=== PATIENT | female | born 1975 | race African-American/Black ===

== ENCOUNTER 2019-06-11 07:59 | Emergency (ER) | payer SELFPAY ==
[~2019-06-11] VITALS: Ht 175.3 cm; Wt 98.9 kg
[~2019-06-11 07:59] MED LIST: ALPRAZOLAM0.25 MG ORAL; CIPROFLOXACIN500 M2 ORAL; NKM
[2019-06-11] MEDS ORDERED: Meclizine 25mg tab ORAL ONE (08:30)
--- NOTE | 2019-06-11 08:30 | NUR ---
ED Nurse Note: Pt walked into ED w/ c/o DOUGHERTY and dizziness for 5 days. Pt denies blurry vision. DOUGHERTY pain 7/10 aching, constant. Pt denies vomiting, but has nausea. Pt alert and orientedx4, ambulatory. Pt is set up on monitor. Pt states she has pain while urinating. Dr Clark notified.
[2019-06-11 08:35] VITALS: BP 135/77
--- NOTE | 2019-06-11 08:56 | Emergency Room Report ---
History of Present Illness General Chief Complaint: Dizziness Source: Patient Present Illness HPI 43-year-old female presents ED for evaluation. Walked in complaining of headache and dizziness for the last 3 days. Describes room spinning sensation. Worse with sudden head movements. Pain is dull, 3 out of 10, nonradiating. Denies photophobia or blurry vision. Denies nausea or vomiting. States that she was seen here previously for this and was noted to have vertigo. States that the medication she was prescribed helped. No other aggravating relieving factors. Denies any other associated symptoms Allergies: Coded Allergies: No Known Allergies (Unverified , 08/15/14) Patient History Past Medical History: none Past Surgical History: none Pertinent Family History: none Social History: Denies: smoking, alcohol use, drug use Now: No Immunizations: UTD Reviewed Nursing Documentation: PMH: Agreed; PSxH: Agreed Nursing Documentation-PMH Past Medical History: No Stated History Hx Hypertension: Yes - with Review of Systems All Other Systems: negative except mentioned in HPI Physical Exam Vital Signs Date Time Temp Pulse Resp B/P (MAP) Pulse Ox O2 Delivery O2 Flow Rate FiO2 06/11/19 08:02 98.2 86 17 142/79 (100) 99 Room Air Sp02 EP Interpretation: reviewed, normal General Appearance: no apparent distress, alert, GCS 15, non-toxic Head: normocephalic, atraumatic Eyes: bilateral eye normal inspection, bilateral eye PERRL ENT: hearing grossly normal, normal pharynx, no angioedema, normal voice Neck: full range of motion, supple/symm/no masses Respiratory: chest non-tender, lungs clear, normal breath sounds, speaking full sentences Cardiovascular #1: regular rate, rhythm, no edema Cardiovascular #2: 2+ carotid (R), 2+ carotid (L), 2+ radial (R), 2+ radial (L) , 2+ dorsalis pedis (R), 2+ dorsalis pedis (L) Gastrointestinal: normal bowel sounds, non tender, soft, non-distended, no guarding, no rebound Rectal: deferred Genitourinary: normal inspection, no CVA tenderness Musculoskeletal: back normal, normal range of motion, gait/station normal, non- tender Neurologic: alert, motor strength/tone normal, it architecture consultant III-XII nml as tested, oriented x3, sensory intact, responsive, speech normal Psychiatric: judgement/insight normal, memory normal, mood/affect normal, no suicidal/homicidal ideation Reflexes: 3+ bicep (R), 3+ bicep (L), 3+ tricep (R), 3+ tricep (L), 3+ knee (R) , 3+ knee (L) Skin: no rash Lymphatic: no adenopathy Medical Decision Making Diagnostic Impression: Primary Impression: Vertigo ER Course Hospital Course 43-year-old female presents ED complaining of dizziness Differential diagnoses include: vertigo, anxiety, UTI Clinical course Patient placed on stretcher. on monitoring engineer. After initial history and physical I ordered meclizine, reglan, UA UA negative On reassessment patient states she feels better. No focal neurological deficits. Walking with steady gait. Previous history of vertigo. I believe this is the same. Will discharge to home with Reglan and meclizine. Safe for discharge for close outpatient follow-up. States she has a PMD I. I feel this is a highly complex case requiring extensive working including EKG/Rhythm strip, Xray/CT/US, Blood/urine lab work, repeat exams while in ED, and administration of strong opiates/narcotics for pain control, admission to hospital or close patient follow up. Diagnosis - vertigo stable and discharged to home with prescription for meclizine, reglan. Followup with PMD. Return to ED if symptoms recur or worsen Labs Test 06/11/19 08:40 06/11/19 09:05 Urine Color Pale yellow Urine Appearance Clear Urine pH 6.5 (4.5-8.0) Urine Specific [place] 1.020 (1.005-1.035) Urine Protein 1+ (NEGATIVE) Urine Glucose (UA) Negative (NEGATIVE) Urine Ketones Negative (NEGATIVE) Urine Blood 1+ (NEGATIVE) Urine Nitrite Negative (NEGATIVE) Urine Bilirubin Negative (NEGATIVE) Urine Urobilinogen Normal MG/DL (0.0-1.0) Urine Leukocyte Esterase 3+ (NEGATIVE) Urine RBC 2-4 /HPF (0 - 2) Urine WBC 10-15 /HPF (0 - 2) Urine Squamous Epithelial Cells Few /LPF (NONE/OCC) Urine Bacteria Few /HPF (NONE) Human Chorionic Gonadotropin, Qual Negative (NEGATIVE) Last Vital Signs Date Time Temp Pulse Resp B/P (MAP) Pulse Ox O2 Delivery O2 Flow Rate FiO2 06/11/19 08:35 98.3 18 135/77 97 Room Air 06/11/19 08:35 82 Status: improved Disposition: HOME, SELF-CARE Condition: Stable Scripts Meclizine Hcl* (VERTICALM*) 25 Mg Tablet 25 MG ORAL THREE TIMES A DAY for 5 Days, TAB Prov: Donald Clark MD 06/11/19 Metoclopramide Hcl* (REGLAN*) 10 Mg Tablet 10 MG ORAL THREE TIMES A DAY for 5 Days, TAB Prov: Donald Clark MD 06/11/19 Donald Clark MD Jun 11, 2019 08:56
[2019-06-11 08:59] LABS: APPEARANCE,URINE CLEAR; BILIRUBIN, URINE NEGATIVE (NEGATIVE); COLOR,URINE PALE YELLOW; GLUCOSE, URINE (UA) NEGATIVE (NEGATIVE); KETONES,URINE NEGATIVE (NEGATIVE); LEUKOCYTE ESTERASE ,URINE 3+ (NEGATIVE); NITRITE,URINE NEGATIVE (NEGATIVE); PH,URINE 6.5 (4.5-8.0); PROTEIN,URINE 1+ (NEGATIVE); UROBILINOGEN,URINE NORMAL MG/DL (0.0-1.0)
[2019-06-11] MEDS ORDERED: VERTICALM25 MG ORAL (09:55)
[2019-06-11] MEDS ORDERED: REGLAN10 MG ORAL (09:55)
[2019-06-11 10:08] VITALS: BP 121/58
--- NOTE | 2019-06-11 10:12 | NUR ---
ER DISCHARGE NOTE: Patient is cleared to be discharged per ERMD, pt is aox4, on room air. Reports decreased dizziness at this time. pt was given dc and prescription instructions, pt was able to verbalize understanding, pt id band and iv site removed without complications. pt is able to ambulate with steady gait. pt took all belongings.
== END 2019-06-11 10:13 | disposition home or self-care (01) ==
LOC: EMR 09:00
DX: R42 Dizziness and giddiness (principal)
CPT/HCPCS: 36415; 81003; 84703; 87086; 99282

== ENCOUNTER → 2019-07-13 | Emergency (ER) | payer SELFPAY ==
[~2019-07-13] VITALS: Ht 175.3 cm; Wt 97.5 kg
[~2019-07-13] MED LIST changes: +REGLAN10 MG ORAL; +VERTICALM25 MG ORAL; +ZOFRAN4 MG ORAL
[2019-07-13 11:39] VITALS: BP 109/75
--- NOTE | 2019-07-13 11:55 | NUR ---
ED Nurse Note: PT. AAOX4. AMBULATORY. WALKED IN TO ED C/O DIARRHEA AND STOMACHE CRAMPS SINCE FRIDAY NIGHT. MARK N/V. NO S/S OF ACUTE DISTRESS NOTED AT THIS TIME
--- NOTE | 2019-07-13 12:07 | Emergency Room Report ---
History of Present Illness General Chief Complaint: Nausea, Vomiting, and Diarrhea Source: Patient Present Illness HPI 43-year-old female presents with nausea vomiting and diarrhea started 2 days ago , her nephew was sick, she endorses abdominal cramps no aggravating leaving factors severity is mild, intermittent no fevers no chills, patient is been tolerating good p.o., patient presents for evaluation Allergies: Coded Allergies: No Known Allergies (Unverified , 08/15/14) Patient History Past Medical History: see triage record Last Menstrual Period: 07/07/2019 Reviewed Nursing Documentation: PMH: Agreed; PSxH: Agreed Nursing Documentation-PMH Past Medical History: No Stated History Hx Hypertension: Yes - with Review of Systems All Other Systems: negative except mentioned in HPI Physical Exam Vital Signs Date Time Temp Pulse Resp B/P (MAP) Pulse Ox O2 Delivery O2 Flow Rate FiO2 07/13/19 11:39 98.8 86 19 109/75 (86) 96 Room Air Sp02 EP Interpretation: reviewed, normal General Appearance: well appearing, no apparent distress, alert Head: normocephalic, atraumatic Eyes: bilateral eye PERRL, bilateral eye EOMI ENT: uvula midline, moist mucus membranes Neck: supple, thyroid normal, supple/symm/no masses Respiratory: lungs clear, no respiratory distress, no retraction, no accessory muscle use Cardiovascular #1: normal peripheral pulses, regular rate, rhythm, no edema, no gallop, no murmur Gastrointestinal: non tender, soft, no guarding, no rebound Musculoskeletal: normal inspection Neurologic: alert, oriented x3 Psychiatric: mood/affect normal Skin: no rash, warm/dry Medical Decision Making Diagnostic Impression: Primary Impression: Nausea, vomiting, and diarrhea Additional Impression: Viral gastroenteritis ER Course 43-year-old female presents with abdominal cramps differential diagnosis includes diverticulitis, viral gastroenteritis, appendicitis Patient most likely with a viral gastroenteritis will provide medications, strict return precautions were discussed follow-up with pcp Last Vital Signs Date Time Temp Pulse Resp B/P (MAP) Pulse Ox O2 Delivery O2 Flow Rate FiO2 07/13/19 11:39 98.8 86 19 109/75 96 Room Air Disposition: HOME, SELF-CARE Condition: Stable Scripts Ondansetron (Zofran) 4 Mg Tablet 4 MG ORAL Q8H PRN for Nausea & Vomiting, #10 TAB 0 Refills Prov: Martin Reynoso MD 07/13/19 Referrals: [facility] Tino Calvo. [facility] Departure Forms: Return to Work Return to Work Date: Jul 16, 2019 Patient Instructions: Viral Gastroenteritis, Adult, [id number] Additional Instructions: The patient was provided with discharge instructions, notified to follow-up with a primary care doctor and or specialist in the next 24-48 hours, and to return to the ED if they have worsening of their symptoms. Please note that this report is being documented using [employer] technology. This can lead to erroneous entry secondary to incorrect interpretation by the dictating instrument. Martin Reynoso MD Jul 13, 2019 12:07
[2019-07-13 12:10] VITALS: BP 124/85
--- NOTE | 2019-07-13 12:10 | NUR ---
ER DISCHARGE NOTE: Patient is cleared to be discharged per ERMD, pt is aox4, on room air, with stable vital signs. pt was given dc and prescription instructions, pt was able to verbalize understanding, pt id band removed. pt is able to ambulate with steady gait. pt took all belongings.
== END | disposition home or self-care (01) ==
LOC: EMR 12:15
DX: R11.2 Nausea with vomiting, unspecified (principal); R19.7 Diarrhea, unspecified; A08.4 Viral intestinal infection, unspecified
CPT/HCPCS: 99282